=== PATIENT | female | born 1975 | race Hispanic/Latino ===

== ENCOUNTER 2017-10-08 11:14 | Emergency (ER) | payer BC ==
[~2017-10-08] VITALS: Ht 177.8 cm; Wt 124.7 kg
[2017-10-08] MEDS ORDERED: PRAVASTATIN SOD20 MG PO (12:07)
[2017-10-08] MEDS ORDERED: METFORMIN HCL500 M2 PO (12:07)
[2017-10-08] MEDS ORDERED: LISINOPRIL10 MG PO (12:07)
[2017-10-08] MEDS ORDERED: BROMFED DM COU118 ML PO (12:25)
== END 2017-10-08 13:00 | disposition home or self-care (01) ==
LOC: FSED 11:14
DX: R05 Cough (principal); J00 Acute nasopharyngitis [common cold]; H01.004 Unspecified blepharitis left upper eyelid; I10 Essential (primary) hypertension; E11.9 Type 2 diabetes mellitus without complications; E78.5 Hyperlipidemia, unspecified
CPT/HCPCS: 99282